=== PATIENT | female | born 1990 | race African-American/Black ===

== ENCOUNTER 2017-11-20 17:23 | Emergency (ER) | payer MEDICAID ==
[~2017-11-20] VITALS: Ht 162.6 cm; Wt 64.0 kg
[2017-11-20] MEDS ORDERED: IBUPROFEN 600MG TABLET PO ONE (17:45)
[2017-11-21] MEDS ORDERED: HYDROCODONE/ACETAMINOPHEN 5/325MG TABLET PO ONE (00:15)
[2017-11-21] MEDS ORDERED: ONDANSETRON 4MG ODT PO ONE (00:15)
[2017-11-21 02:26] LABS: CHLORIDE 104 mEq/L (98-107)
[2017-11-21] MEDS ORDERED: IOHEXOL-350 100 ML BOTTLE ONE (04:11)
[2017-11-21 06:00] VITALS: BP 117/47
== END 2017-11-21 06:45 | disposition home or self-care (01) ==
LOC: ER 17:23
DX: S62.633A Displaced fracture of distal phalanx of left middle finger, initial encounter for closed fracture (principal); S10.93XA Contusion of unspecified part of neck, initial encounter; R11.0 Nausea; F12.10 Cannabis abuse, uncomplicated; Y04.2XXA Assault by strike against or bumped into by another person, initial encounter; Y93.89 Activity, other specified; Y92.810 Car as the place of occurrence of the external cause; Y99.8 Other external cause status
CPT/HCPCS: 36415; 70498; 73140; 80048; 81025; 99285; Q0162; Q9967